=== PATIENT | male | born 1995 | race American Indian/Alaskan Native ===

== ENCOUNTER 2018-06-03 15:25 | Emergency (ER) | payer MEDICAID ==
--- NOTE | 2018-06-03 15:56 | Emergency Department Report ---
ED Psych HPI - General Stated Complaint: MH Time Seen by Provider: 06/03/18 15:39 - History of Present Illness Initial Comments: Patient is 23 years old male with history of autism. Patient brought to the emergency room via EMS for evaluation of aggressiveness. Mother stated that the patient is being walking naked in the street and trying to hit everyone he meet. She stated that he stop eating. Mother stated that patient was treated his Risperdal but he ran out of his medication. Upon arrival to the ER patient is in 4 points soft restraint. Patient is not communicating. MD Complaint: altered mental status Quality: constant ED Review of Systems ROS: Stated complaint: MH Other details as noted in HPI Comment: Unobtainable due to pts medical conditions ED Physical Exam - General General appearance: obtunded, other (sleeping) - Head Head exam: Present: atraumatic, normocephalic, normal inspection - Eye Eye exam: Present: normal appearance - ENT ENT exam: Present: normal exam, normal orophraynx, mucous membranes moist - Neck Neck exam: Present: normal inspection, full ROM. Absent: tenderness, menin gismus, lymphadenopathy, thyromegaly - Respiratory Respiratory exam: Present: normal lung sounds bilaterally. Absent: respiratory distress, wheezes, rales, rhonchi, stridor, chest wall tenderness, accessory muscle use, decreased breath sounds, prolonged expiratory - Cardiovascular Cardiovascular Exam: Present: regular rate, normal rhythm, normal heart sounds - GI/Abdominal GI/Abdominal exam: Present: soft, normal bowel sounds. Absent: distended, tenderness, guarding, rebound, rigid, organomegaly, mass, bruit, pulsatile mass, hernia - Extremities Exam Extremities exam: Present: normal inspection, full ROM, normal capillary refill. Absent: pedal edema, joint swelling, calf tenderness - Back Exam Back exam: Present: normal inspection, full ROM - Neurological Exam Neurological exam: Present: altered - Psychiatric Psychiatric exam: Present: agitated - Skin Skin exam: Present: warm, intact, normal color Critical care attestation.: If time is entered above; I have spent that time in minutes in the direct care of this critically ill patient, excluding procedure time. ED Disposition Clinical Impression: Acute psychosis Disposition: DC/TX-65 PSY HOSP/PSY UNIT Is pt being admited?: No Condition: Stable
[2018-06-03 16:37] LABS: Basophils % (Auto) 0.5 % (0.0-1.8); Eosinophils % (Auto) 0.5 % (0.0-4.3); Hematocrit 40.1 % (35.5-45.6); Hemoglobin 13.2 gm/dl (11.8-15.2); Lymphocytes # (Auto) 0.6 K/mm3 (1.2-5.4); Lymphocytes % (Auto) 9.8 % (13.4-35.0); Mean Corpuscular HGB Conc 33 % (32-34); Mean Corpuscular Volume 85 fl (84-94); Monocytes # (Auto) 0.3 K/mm3 (0.0-0.8); Monocytes % (Auto) 5.2 % (0.0-7.3); Platelet Count 212 K/mm3 (140-440); Red Blood Count 4.72 M/mm3 (3.65-5.03); Red Cell Distribution Width 12.6 % (13.2-15.2)
[2018-06-03 16:59] LABS: Albumin 4.7 g/dL (3.9-5); Calcium 9.9 mg/dL (8.4-10.2)
[2018-06-03] MEDS ORDERED: ATIVAN IM STA (20:16)
[2018-06-03] MEDS ORDERED: ATIVAN ONE (20:20)
[2018-06-03 22:30] LABS: Bilirubin,Urine NEG (Negative); Blood,Urine NEG (Negative); Color,Urine Yellow (Yellow); Urobilinogen,Urine < 2.0 mg/dL (<2.0)
[2018-06-03 22:38] LABS: Amphetamine Screen,Urine PRESUMPTIVE NEGATIVE; Cannabinoid Screen,Urine PRESUMPTIVE NEGATIVE; Cocaine Screen,Urine PRESUMPTIVE NEGATIVE; Methadone Screen,Urine PRESUMPTIVE NEGATIVE; Opiate Screen,Urine PRESUMPTIVE NEGATIVE
[2018-06-03 22:49] LABS: Benzodiazepines Screen,Urine PRESUMPTIVE POSITIVE
[2018-06-04] MEDS ORDERED: HALDOL IM ONE (08:51)
--- NOTE | 2018-06-04 08:51 | Emergency Department Report ---
Blank Doc - Documentation Documentation: I evaluated Kamron. I also spoke with mother at the bedside. She agreed that he will require physical restraint. Hx of autism. I also provided chemical restraint order for mild sedation. I have renewed restraint order.
--- NOTE | 2018-06-04 11:15 | Consultation ---
History of Present Illness - Reason for Consult Consult date: 06/04/18 Reason for consult: Mental Health Evaluation Requesting physician: ALEXANDRO HUTSON - Chief Complaint Chief complaint: "The patient is nonverbal" - History of Present Psychiatric Illness 23 years old AA male with a hx of autism presented to the ER for aggressive behavior. Today the patient is agitated during the assessment. The do not communicate verbally other than grunting. Per collateral information from his mother Mrs Shae Marie, she stated that her son have been aggressive for several months. She stated that he was [place] [facility] [place] medication was [place]. She acknowledged that she didn't follow up with a psychiatrist for her son, because of several reasons. Medications and Allergies Allergies Allergy/AdvReac Type Severity Reaction Status Date / Time Pork/Porcine Containing AdvReac Unknown Verified 06/03/18 16:31 Products Active Meds: Active Medications Chlorpromazine HCl (Thorazine) 25 mg IM Q8H PRN PRN Reason: Agitation Clonazepam (Klonopin) 0.5 mg PO BID SERGEY Risperidone (Risperdal) 1 mg PO HS SERGEY Past psychiatric history - Past Medical History Past Medical History: other (Per the mother, no medical concersn) Past Surgical History: Other (Per the mother, no surgical hx) - past Psychiatric treatment and history psychiatric treatment history: Hx of Autism. Per the patient's mother, no fam psy hx. - Social History Social history: lives with family Mental Status Exam - Vital signs Last Vital Signs Temp 98.0 F 06/04/18 02:00 Pulse 70 06/04/18 02:00 Resp 18 06/04/18 02:00 BP 110/60 06/04/18 02:00 Pulse Ox 100 06/04/18 02:00 - Exam Narrative exam: The MSE could not be completed because of the patient's condition. Results Result Diagrams: 06/03/18 16:19 06/03/18 16:19 Abnormal lab results 06/03/18 06/03/18 06/03/18 Range/Units 16:19 16: 16: RDW 12.6 L (13.2-15.2) % Lymph % (Auto) 9.8 L (13.4-35.0) % Lymph # 0.6 L (1.2-5.4) K/mm3 Seg Neutrophils % 84.0 H (40.0-70.0) % Potassium 5.2 H (3.6-5.0) mmol/L Creatinine 1.7 H (0.8-1.5) mg/dL Glucose 73 L (75-100) mg/dL Total Protein 8.3 H (6.3-8.2) g/dL Salicylates < 0.3 L (2.8-20.0) mg/dL Acetaminophen (10.0-30.0) ug/mL 06/03/18 Range/Units 16:19 RDW (13.2-15.2) % Lymph % (Auto) (13.4-35.0) % Lymph # (1.2-5.4) K/mm3 Seg Neutrophils % (40.0-70.0) % Potassium (3.6-5.0) mmol/L Creatinine (0.8-1.5) mg/dL Glucose (75-100) mg/dL Total Protein (6.3-8.2) g/dL Salicylates (2.8-20.0) mg/dL Acetaminophen < 5.0 L (10.0-30.0) ug/mL All other labs normal. Assessment and Plan Assessment and plan: Impression: Autism with aggressive behavior. Today the patient is agitated during the assessment. The patient is in restraints. Recommendation/Plan: Continue 1013 and start Risperdal 1 mg PO HS agitation, Klonopin 0.5 mg PO BID for anxiety,and Thorazine 25 mg IM Q8hrs PRN for acute agitation,. Discussed possible metabolic side effects of Rispredal with the patient's mother Shae Marie. Dipso; The patient was referred to inpatient psy services. Will staff with Dr Vic Pena.
[2018-06-04] MEDS: THORAZINE IM PRN (16:45)
[2018-06-04] MEDS: RisperDAL PO SCH (22:14)
[2018-06-05] MEDS ORDERED: ATIVAN IM ONE (04:37)
--- NOTE | 2018-06-05 14:20 | Progress Note ---
Subjective - Reason for Consult Consult date: 06/05/18 Reason for consult: Psychiatric Follow-up Evaluation - Chief Complaint Chief complaint: "The patient is nonverbal" Patient is a 23 years old AA male with a hx of autism presented to the ER for aggressive behavior. Today the patient is agitated during the assessment. He does not communicate verbally other than grunting. Per collateral information from his mother Mrs Shae Marie, she stated that her son have been aggressive for several months. Per staff patient has been agitated at a minimum. Mental Status Exam - Vital signs Last Vital Signs Temp 97.8 F 06/05/18 04:30 Pulse 88 06/05/18 04:30 Resp 20 06/05/18 04:30 BP 174/101 06/05/18 04:30 Pulse Ox 98 06/05/18 04:30 - Exam Narrative exam: The MSE could not be completed because of the patient's condition. Assessment and Plan Impression: Autism with aggressive behavior. Today the patient is agitated during the assessment. The patient is in restraints. Recommendation/Plan: 1. Continue 1013. 2. Continue Risperdal 1 mg PO HS agitation, Klonopin 0.5 mg PO BID for anxiety,and Thorazine 25 mg IM Q8hrs PRN for acute agitation,. Discussed possible metabolic side effects of Rispredal with the patient's mother Shae Marie. Disposition: The patient was referred to inpatient psychiatric services. Will staff with Dr. Vic Pena.
[2018-06-05] MEDS: RisperDAL PO SCH (22:25)
[2018-06-06] MEDS: THORAZINE IM PRN ×2 (12:20→22:13)
--- NOTE | 2018-06-06 12:37 | Progress Note ---
Subjective - Reason for Consult Consult date: 06/06/18 Reason for consult: Psychiatry Follow-up - Chief Complaint Chief complaint: "The patient is nonverbal" Patient is a 23 years old AA male with a hx of autism presented to the ER for aggressive behavior. Today the patient is less agitated than previous assessment. Mental Status Exam - Vital signs Last Vital Signs Temp 98.1 F 06/06/18 02:17 Pulse 104 H 06/06/18 02:17 Resp 16 06/06/18 10:32 BP 127/83 06/06/18 02:17 Pulse Ox 97 06/06/18 10:32 - Exam Narrative exam: The MSE could not be completed because of the patient's condition. Assessment and Plan Impression: Autism with aggressive behavior. Today the patient is agitated during the assessment.CR 1.7 and K 5.2 as of 06/03/2018. Recommendation/Plan: Continue 1013 and Risperdal 1 mg PO HS agitation, Klonopin 0.5 mg PO BID for anxiety,and Thorazine 25 mg IM Q8hrs PRN for acute agitation,. Discussed possible metabolic side effects of Rispredal with the patient's mother Shae Marie. BMP ordered and the ER physician and assigned nurse was informed of the patient's labs (K and Cr.). Dipso; The patient was referred to inpatient psy services. Will staff with Dr Chatman.
[2018-06-06 13:01] LABS: BUN/Creatinine Ratio 7; Blood Urea Nitrogen 11 mg/dL (9-20); Calcium 10.2 mg/dL (8.4-10.2); Hemolysis Index 22
--- NOTE | 2018-06-06 14:21 | Emergency Department Report ---
Blank Doc - Documentation Documentation: I spoke with warehouse packer who requested reevaluation for restraint order and high school social studies tutor consultation. I reevaluated Mr. Marie. He still requires physical restraints on at least one extremity. I have renewed restraint order. I also ordered high school social studies tutor consultation.
[2018-06-06] MEDS ORDERED: GEODON IM ONE ×2 (16:51→17:02)
[2018-06-06] MEDS ORDERED: WATER FOR INJ Sterile (PF) 10 ML ONE (16:52)
[2018-06-07] MEDS: RisperDAL PO SCH ×2 (01:04→22:24)
--- NOTE | 2018-06-07 05:41 | Event Note ---
Date: 06/07/18 Informed the ER Physician of the patient's K level of 5.3. Per the ER Physician, he will continue to monitor the patient.
--- NOTE | 2018-06-07 13:08 | Progress Note ---
Addendum entered and electronically signed by TRIPP ABDI NP 06/07/18 16:31: [facility] will be contacted to assess the patient. They can recommend services to the family. A voicemail was left for the patient's mother [phone] to call the psy team. Original Note: Subjective - Reason for Consult Consult date: 06/07/18 Reason for consult: Psychiatry Follow-up - Chief Complaint Chief complaint: "The patient is nonverbal" Patient is a 23 years old AA male with a hx of autism presented to the ER for aggressive behavior. Today the patient isn't agitated during the assessment. Per the staff, no behavioral disturbances on this shift by the patient. Mental Status Exam - Vital signs Last Vital Signs Temp 98 F 06/07/18 07:52 Pulse 66 06/07/18 07:52 Resp 20 06/07/18 07:54 BP 155/105 06/07/18 07:52 Pulse Ox 99 06/07/18 07:52 - Exam Narrative exam: The MSE could not be completed because of the patient's condition. Assessment and Plan Impression: Autism with aggressive behavior. Today the patient isn't agitated during the assessment. K 5.3. Recommendation/Plan: Reevaluate 1013 in 24 hours and Risperdal 1 mg PO HS agitation, Klonopin 0.5 mg PO BID for anxiety,and Thorazine 25 mg IM Q8hrs PRN for acute agitation,. Discussed possible metabolic side effects of Rispredal with the patient's mother Shae Marie. Dips:; If the patent's 1013 is rescinded, he can follow up with [employer] [facility] or [facility]. Will staff with Dr Chatman.
--- NOTE | 2018-06-08 17:50 | Progress Note ---
Subjective - Reason for Consult Consult date: 06/08/18 Reason for consult: follow up - Chief Complaint Chief complaint: "The patient is nonverbal" Patient is a 23 years old AA male with a hx of autism presented to the ER for aggressive behavior. Staff report he refused to wear clothes. He will stay in the bed and cover with a gown. He yells when the door is open. [facility] Crisis is recommended to see him. Placement is needed. unable to assess mental status Impression: Autism with aggressive behavior. Today the patient isn't agitated during the assessment. K 5.3. Recommendation/Plan: Continue 1013 Risperdal 1 mg PO HS agitation, Klonopin 0.5 mg PO BID for anxiety,and Thorazine 25 mg IM Q8hrs PRN for acute agitation,. Dispo If the patent's 1013 is rescinded, he can follow up with [facility] or [facility]. ER physician to monitor K+ staffed with Dr. Jocelyn Pena Mental Status Exam - Vital signs Last Vital Signs Temp 97.6 F 06/08/18 07:56 Pulse 89 06/08/18 07:56 Resp 20 06/08/18 07:56 BP 123/78 06/08/18 07:56 Pulse Ox 98 06/07/18 19:00
[2018-06-08] MEDS: THORAZINE IM PRN (20:31)
[2018-06-08] MEDS: RisperDAL PO SCH (22:05)
[2018-06-09] MEDS: THORAZINE IM PRN (04:30)
--- NOTE | 2018-06-09 18:33 | Progress Note ---
Subjective - Reason for Consult Consult date: 06/09/18 Reason for consult: follow up - Chief Complaint Chief complaint: non verbal Patient is a 23 years old AA male with a hx of autism presented to the ER for aggressive behavior. Aggression has resolved. Staff report he refused to wear clothes. This is chronic. Staff report he has not been aggressive since starting medications. He is particular about how he eats and does not want to keep clothes on. He wears a diaper. Impression: Autism with aggressive behavior. Aggressive behavior has resolved with medication management. DD Crisis team recommends his mother to follow up with the DD waiver. There are no acute safety concerns. Recommendation/Plan: Rescind 1013. Recommend continuing medications- Risperdal 1 mg PO HS agitation, Klonopin 0.5 mg PO BID for anxiety,and Thorazine 25 mg IM Q8hrs PRN for acute agitation,. Dispo: rescind 1013 and mother to pick him up and follow up with DD waiver and psychiatric. He needs in home case management which will be addressed by following up with [facility]. Information for [facility] will be provided. staffed with Dr. Jocelyn Pena Mental Status Exam - Vital signs Last Vital Signs Temp 97.6 F 06/08/18 07:56 Pulse 67 06/09/18 02:26 Resp 16 06/09/18 02:26 BP 140/92 06/09/18 02:26 Pulse Ox 98 06/09/18 02:26
[2018-06-09] MEDS: RisperDAL PO SCH (22:27)
[2018-06-10] MEDS: RisperDAL PO SCH (22:05)
[2018-06-11 08:23] VITALS: BP 120/66
[2018-06-11] MEDS ORDERED: GEODON IM ONE ×2 (17:10→17:20)
== END 2018-06-11 17:28 | disposition home or self-care (01) ==
LOC: ED 15:25 → EEVIPCON 15:25 → ED 06-11 17:28
DX: F84.0 Autistic disorder (principal); R46.2 Strange and inexplicable behavior; F23 Brief psychotic disorder; Z91.018 Allergy to other foods
CPT/HCPCS: 36415; 80048; 80053; 80307; 81001; 85025; 96372; 99285; G0480; J1630; J2060; J3230; J3486; 80320